=== PATIENT | male | born 1960 | race Caucasian/White ===

== ENCOUNTER 2017-06-18 14:10 | Outpatient (CLI) | payer OTHER ==
[~2017-06-18 14:10] MED LIST: NO HOME MEDS
[2017-06-18 14:39] LABS: BASOPHILS % (AUTO) 0.4 % (0-1); EOSINOPHILS # (AUTO) 0.2 X10'3 (0-0.9); HEMATOCRIT 45.5 % (42.0-52.0); HEMOGLOBIN 15.3 g/dl (14.0-17.9); LYMPHOCYTES # (AUTO) 1.1 X10'3 (1.1-4.8); LYMPHOCYTES % (AUTO) 19.8 % (21-51); MEAN CORPUSCULAR HEMOGLOBIN 30.4 PG (27.0-31.0); MEAN CORPUSCULAR HGB CONC 33.7 % (33.0-36.5); MEAN CORPUSCULAR VOLUME 90.3 FL (78-98); MEAN PLATELET VOLUME 7.7 FL (7.4-10.4); MONOCYTES # (AUTO) 0.4 X10'3 (0-0.9); MONOCYTES % (AUTO) 7.7 % (2-12); NEUTROPHILS # (AUTO) 3.9 X10'3 (1.8-7.7); NEUTROPHILS % (AUTO) 68.1 % (42-75); PLATELET COUNT 238 X10'3 (140-440); RED BLOOD COUNT 5.03 X10'6 (4.70-6.10); RED CELL DISTRIBUTION WIDTH 13.3 % (11.5-14.5); WHITE BLOOD COUNT 5.7 X10'3 (4.5-11.0)
[2017-06-18 15:06] LABS: ALANINE AMINOTRANSFERASE 24 U/L (12-78); ALBUMIN/GLOBULIN RATIO 1.1 (1.1-1.5); ALKALINE PHOSPHATASE 88 IU/L (46-116); ANION GAP 5 (8-16); ASPARTATE AMINO TRANSFERASE 14 U/L (10-37); BILIRUBIN,TOTAL 0.7 MG/DL (0.1-1.0); BLOOD UREA NITROGEN 11 MG/DL (7-18); CALCIUM 9.1 MG/DL (8.5-10.1); CHLORIDE 105 MMOL/L (99-107); CHOLESTEROL 189 MG/DL (0-200); GLUCOSE 101 MG/DL (70-104); HDL CHOLESTEROL 62 MG/DL (35-60); LDL CHOLESTEROL 113 MG/DL (50-100); POTASSIUM 4.3 MMOL/L (3.5-5.1); SODIUM 141 MMOL/L (135-145); TOTAL CARBON DIOXIDE 30.9 MMOL/L (24-32); TOTAL PROTEIN 7.5 G/DL (6.4-8.2); TRIGLYCERIDES 65 MG/DL (20-135); eGFR 78 ML/MIN
== END 2017-06-18 23:59 | disposition home or self-care (01) ==
LOC: LAB 14:10
PROVIDERS: ATTEND Internal Medicine
DX: Z00.00 Encounter for general adult medical examination without abnormal findings (principal)
CPT/HCPCS: 36415; 80053; 80061; 82306; 84153; 84443; 85025

== ENCOUNTER 2019-04-14 09:25 | Day surgery (SDC) | payer OTHER ==
[~2019-04-14] VITALS: Ht 188 cm; Wt 86.4 kg
[2019-04-14 09:32] VITALS: BP 152/90
[2019-04-14] MEDS ORDERED: MIDAZolam 5mg/5ml vial ONE ×2 (09:33)
[2019-04-14] MEDS ORDERED: fentaNYL/PF 50MCG/1 ML 2ML syringe ONE (09:33)
[2019-04-14 10:49] VITALS: BP 115/60
[2019-04-14 10:59] VITALS: BP 111/61
[2019-04-14 11:09] VITALS: BP 108/62
[2019-04-14 11:19] VITALS: BP 112/65
== END 2019-04-14 11:30 | disposition home or self-care (01) ==
LOC: GI LAB 09:25
PROVIDERS: ATTEND Internal Medicine Gastroenterology
DX: Z12.11 Encounter for screening for malignant neoplasm of colon (principal); K63.5 Polyp of colon
CPT/HCPCS: 45380; 99152; 99153; J2250; J3010; J7040; A4620

== ENCOUNTER 2019-06-09 14:41 | Emergency (ER) | payer OTHER ==
[~2019-06-09] VITALS: Ht 188 cm; Wt 87.7 kg
[~2019-06-09 14:41] MED LIST changes: +CYCL-1 PO
[2019-06-09] MEDS ORDERED: fentaNYL/PF 50MCG/1 ML 2ML syringe IV ONE ×2 (15:55→17:40)
[2019-06-09] MEDS ORDERED: ketorolac trometh. 30mg/ml inj. IV ONE (15:55)
[2019-06-09] MEDS ORDERED: ketamine 50 mg/ml 10ml vial IV ONE ×2 (16:05→18:30)
--- NOTE | 2019-06-09 17:09 | NUR ---
WAITING ORTHOTEC FOR PROCEDURE. DR. BARROSO IN TO SEE PT. VSS. PAIN MEDS EFFECTIVE. CONSENTS SIGNED FOR REDUCTION LEFT SHOULDER.
--- NOTE | 2019-06-09 18:23 | NUR ---
POST REDUCTION FILM DONE NOW.
--- NOTE | 2019-06-09 18:27 | NUR ---
PT ABLE TO ANSWER QUESTIONS. STATES NO PAIN AT ALL. VS BACK TO PRE-PROCEDURE.
--- NOTE | 2019-06-09 18:32 | NUR ---
V.O. KETAMINE 100MG INTRA-PROCEDURE ORDERED AND DONE.
--- NOTE | 2019-06-09 18:35 | NUR ---
PT BACK TO BASELINE AFTER MODERATE SEDATION. REPORT BACK TO PRIMARY NURSE IKE. AT BEDSIDE.
--- NOTE | 2019-06-09 18:44 | NUR ---
ASSUMING CARE FROM PREVIOUS RN WHO IS GOING OFF SHIFT. PT IS POST MODERATE SEDATION. ALERT, AWAKE AND CONVERSING WITH AT BEDSIDE. VITALS WNL. WILL CONTINUE TO MONITOR.
[2019-06-09] MEDS ORDERED: CYCL-1 PO (18:58)
[2019-06-09] MEDS ORDERED: HYDR-4383 PO (18:58)
[2019-06-09 19:13] VITALS: BP 154/81
[2019-06-09] MEDS ORDERED: cyclobenzaprine 10mg tablet PO ONE (19:15)
--- NOTE | 2019-06-09 19:21 | NUR ---
PT AND UNDERSTAND D\C PLAN AND INSTRUCTIONS. PT ASSISTED INTO WHEELCHAIR AND OUT TO VEHICLE. TRANSPORTING HOME. NO QUESTIONS AT TIME OF D\C. PT HAS SLING\SPLINT IN PLACE.
== END 2019-06-09 19:22 | disposition home or self-care (01) ==
LOC: ER 14:42
DX: S43.085A Other dislocation of left shoulder joint, initial encounter (principal); Z79.899 Other long term (current) drug therapy; V00.311A Fall from snowboard, initial encounter; Y93.29 Activity, other involving ice and snow; Y92.89 Other specified places as the place of occurrence of the external cause; Y99.8 Other external cause status
CPT/HCPCS: 23650; 73020; 73030; 96374; 96375; 96376; 99152; 99285; J1885; J3010

== ENCOUNTER 2019-07-28 11:01 | Outpatient (CLI) | payer OTHER ==
[~2019-07-28 11:01] MED LIST changes: +HYDR-4383 PO
== END 2019-07-28 23:59 | disposition home or self-care (01) ==
LOC: RAD 11:01
PROVIDERS: ATTEND Orthopaedic Surgery
DX: Z09 Encounter for follow-up examination after completed treatment for conditions other than malignant neoplasm (principal); S42.92XD Fracture of left shoulder girdle, part unspecified, subsequent encounter for fracture with routine healing; X58.XXXD Exposure to other specified factors, subsequent encounter
CPT/HCPCS: 73030

== ENCOUNTER 2020-03-28 10:58 | Outpatient (CLI) | payer BC ==
[2020-03-28 11:36] LABS: BASOPHILS % (AUTO) 0.6 % (0-1); EOSINOPHILS # (AUTO) 0.2 X10'3 (0-0.9); EOSINOPHILS % (AUTO) 5.9 % (0-6); HEMATOCRIT 44.2 % (42.0-52.0); HEMOGLOBIN 14.7 g/dl (14.0-17.9); LYMPHOCYTES # (AUTO) 0.9 X10'3 (1.1-4.8); LYMPHOCYTES % (AUTO) 20.9 % (21-51); MEAN CORPUSCULAR HEMOGLOBIN 30.9 PG (27.0-31.0); MEAN CORPUSCULAR HGB CONC 33.2 g/dL (33.0-36.5); MEAN PLATELET VOLUME 7.3 FL (7.4-10.4); MONOCYTES # (AUTO) 0.4 X10'3 (0-0.9); MONOCYTES % (AUTO) 9.2 % (2-12); NEUTROPHILS # (AUTO) 2.7 X10'3 (1.8-7.7); NEUTROPHILS % (AUTO) 63.4 % (42-75); PLATELET COUNT 246 X10'3 (140-440); RED BLOOD COUNT 4.76 X10'6 (4.70-6.10); RED CELL DISTRIBUTION WIDTH 13.4 % (11.5-14.5); WHITE BLOOD COUNT 4.2 X10'3 (4.5-11.0)
[2020-03-28 12:00] LABS: ALANINE AMINOTRANSFERASE 23 U/L (12-78); ALBUMIN 3.8 G/DL (3.4-5.0); ALKALINE PHOSPHATASE 103 IU/L (46-116); ANION GAP 9 (8-16); ASPARTATE AMINO TRANSFERASE 14 U/L (10-37); BILIRUBIN,TOTAL 0.5 MG/DL (0.1-1.0); BLOOD UREA NITROGEN 10 MG/DL (7-18); BUN/CREATININE RATIO 9.1 (5.4-32.0); CALCIUM 9.3 MG/DL (8.5-10.1); CHLORIDE 103 MMOL/L (99-107); CHOL/HDL RATIO 3.9 (0.00-4.99); CHOLESTEROL 227 MG/DL (0-200); GLUCOSE 103 MG/DL (70-104); HDL CHOLESTEROL 58 MG/DL (35-60); LDL CHOLESTEROL 133 MG/DL (50-100); POTASSIUM 3.9 MMOL/L (3.5-5.1); SODIUM 142 MMOL/L (135-145); TOTAL CARBON DIOXIDE 30.1 MMOL/L (24-32); TOTAL PROTEIN 7.5 G/DL (6.4-8.2); TRIGLYCERIDES 161 MG/DL (20-135); eGFR 69 ML/MIN
[2020-03-29 08:53] LABS: % FREE PSA 22.9 % (.); PSA, FREE 0.48 ng/mL
== END 2020-03-28 23:59 | disposition home or self-care (01) ==
LOC: LAB 10:58
PROVIDERS: ATTEND Internal Medicine
DX: Z00.00 Encounter for general adult medical examination without abnormal findings (principal)
CPT/HCPCS: 36415; 80053; 80061; 82306; 84153; 84154; 84443; 85025

== ENCOUNTER 2020-08-15 09:16 | Day surgery (SDC) | payer BC ==
[~2020-08-15] VITALS: Ht 188 cm; Wt 91.4 kg
[2020-08-15 09:23] VITALS: BP 167/75
[2020-08-15] MEDS ORDERED: MULT-227 PO (09:35)
[2020-08-15] MEDS ORDERED: MIDAZolam 1 MG/ML 5ML VIAL ONE (09:36)
[2020-08-15] MEDS ORDERED: LIDOcaine Viscous 15ml cup ONE (09:36)
[2020-08-15] MEDS ORDERED: fentaNYL/PF 50MCG/1 ML 2ML syringe ONE (09:36)
[2020-08-15 09:55] VITALS: BP 123/78
[2020-08-15 10:05] VITALS: BP 125/51
[2020-08-15 10:15] VITALS: BP 135/78
[2020-08-15 10:25] VITALS: BP 131/78
== END 2020-08-15 10:35 | disposition home or self-care (01) ==
LOC: GI LAB 09:16
PROVIDERS: ATTEND Internal Medicine Gastroenterology
DX: R13.19 Other dysphagia (principal); K22.2 Esophageal obstruction; K44.9 Diaphragmatic hernia without obstruction or gangrene; K22.8 Other specified diseases of esophagus; K29.50 Unspecified chronic gastritis without bleeding; K22.70 Barrett's esophagus without dysplasia; K20.80 Other esophagitis without bleeding; Z72.89 Other problems related to lifestyle
CPT/HCPCS: 43239; 43450; J2250; J3010; J7040; 99152; A4620

== ENCOUNTER 2021-04-01 09:15 | Outpatient (CLI) | payer BC ==
[~2021-04-01 09:15] MED LIST changes: -CYCL-1 PO; -HYDR-4383 PO; +MULT-227 PO; -NO HOME MEDS
== END 2021-04-01 23:59 | disposition home or self-care (01) ==
LOC: 64 CT 09:15
PROVIDERS: ATTEND Internal Medicine
DX: K40.90 Unilateral inguinal hernia, without obstruction or gangrene, not specified as recurrent (principal); K57.30 Diverticulosis of large intestine without perforation or abscess without bleeding; N40.0 Benign prostatic hyperplasia without lower urinary tract symptoms; M47.819 Spondylosis without myelopathy or radiculopathy, site unspecified; M19.09 Primary osteoarthritis, other specified site; I70.8 Atherosclerosis of other arteries
CPT/HCPCS: 72192

== ENCOUNTER 2022-09-26 10:20 | Outpatient (CLI) | payer BC ==
[2022-09-26 11:05] LABS: CLARITY,URINE CLOUDY (Clear); COLOR,URINE YELLOW (Yellow); GLUCOSE, URINE NEGATIVE (Neg); KETONES,URINE NEGATIVE (Neg); LEUKOCYTE ESTERASE ,URINE NEGATIVE (Neg); NITRITES, URINE NEGATIVE (Neg); OCCULT BLOOD,URINE NEGATIVE (Neg); PROTEIN,URINE NEGATIVE (Neg)
[2022-09-26 11:08] LABS: BASOPHILS # (AUTO) 0.1 X10'3 (0-0.2); BASOPHILS % (AUTO) 1.3 % (0-1); EOSINOPHILS # (AUTO) 0.1 X10'3 (0-0.9); EOSINOPHILS % (AUTO) 1.2 % (0-6); HEMOGLOBIN 15.4 g/dl (14.0-17.9); LYMPHOCYTES # (AUTO) 1.2 X10'3 (1.1-4.8); LYMPHOCYTES % (AUTO) 23.3 % (21-51); MEAN CORPUSCULAR HEMOGLOBIN 31.8 PG (27.0-31.0); MEAN CORPUSCULAR HGB CONC 33.4 g/dL (33.0-36.5); MEAN CORPUSCULAR VOLUME 95.3 FL (78-98); MEAN PLATELET VOLUME 7.4 FL (7.4-10.4); MONOCYTES # (AUTO) 0.5 X10'3 (0-0.9); MONOCYTES % (AUTO) 9.7 % (2-12); NEUTROPHILS # (AUTO) 3.4 X10'3 (1.8-7.7); NEUTROPHILS % (AUTO) 64.5 % (42-75); PLATELET COUNT 330 X10'3 (140-440); RED BLOOD COUNT 4.83 X10'6 (4.70-6.10); RED CELL DISTRIBUTION WIDTH 13.5 % (11.5-14.5); WHITE BLOOD COUNT 5.2 X10'3 (4.5-11.0)
[2022-09-26 11:11] LABS: UA COLLECTION TYPE CLN CATCH MIDSTREAM
[2022-09-26 11:12] LABS: MUCUS STRANDS MANY /LPF (Neg)
[2022-09-26 11:13] LABS: SQUAMOUS EPITHELIAL CELL,UR FEW /LPF (FEW)
[2022-09-26 11:14] LABS: BACTERIA,URINE 1+ /HPF (Neg); RBC,URINE 0-2 /HPF (0-2)
[2022-09-26 11:19] LABS: ALANINE AMINOTRANSFERASE 31 U/L (12-78); ALBUMIN 3.8 G/DL (3.4-5.0); ALKALINE PHOSPHATASE 120 IU/L (46-116); ANION GAP 6 (8-16); ASPARTATE AMINO TRANSFERASE 22 U/L (10-37); BILIRUBIN,TOTAL 0.7 MG/DL (0.1-1.0); BLOOD UREA NITROGEN 12 MG/DL (7-18); BUN/CREATININE RATIO 10.8 (10.0-20.0); CALCIUM 9.4 MG/DL (8.5-10.1); CHLORIDE 103 MMOL/L (99-107); CREATININE 1.11 MG/DL (0.60-1.10); GLUCOSE 101 MG/DL (70-104); SODIUM 140 MMOL/L (135-145); TOTAL CARBON DIOXIDE 31.3 MMOL/L (24-32); TOTAL PROTEIN 7.6 G/DL (6.4-8.2); eGFR 68 ML/MIN
[2022-09-26 11:28] LABS: CHOL/HDL RATIO 3.5 (0.00-4.99); CHOLESTEROL 203 MG/DL (0-200); HDL CHOLESTEROL 58 MG/DL (35-60); LDL CHOLESTEROL 112 MG/DL (50-100); TRIGLYCERIDES 127 MG/DL (20-135)
[2022-09-27 14:10] LABS: % FREE PSA 18.7 % (.); PSA, FREE 0.43 ng/mL
== END 2022-09-26 23:59 | disposition home or self-care (01) ==
LOC: LAB 10:20
PROVIDERS: ATTEND Nurse Practitioner Family
DX: Z00.01 Encounter for general adult medical examination with abnormal findings (principal); Z76.89 Persons encountering health services in other specified circumstances
CPT/HCPCS: 36415; 80053; 80061; 81001; 84153; 84154; 84439; 84443; 85025

== ENCOUNTER 2022-10-29 06:55 | Day surgery (SDC) | payer BC ==
[2022-10-24 10:02] LABS: BASOPHILS % (AUTO) 0.7 % (0-1); EOSINOPHILS # (AUTO) 0.1 X10'3 (0-0.9); EOSINOPHILS % (AUTO) 2.4 % (0-6); LYMPHOCYTES # (AUTO) 1.2 X10'3 (1.1-4.8); MEAN CORPUSCULAR HEMOGLOBIN 32.6 PG (27.0-31.0); MEAN CORPUSCULAR HGB CONC 33.8 g/dL (33.0-36.5); MEAN CORPUSCULAR VOLUME 96.4 FL (78-98); MEAN PLATELET VOLUME 6.9 FL (7.4-10.4); MONOCYTES # (AUTO) 0.5 X10'3 (0-0.9); MONOCYTES % (AUTO) 10.5 % (2-12); NEUTROPHILS # (AUTO) 3.3 X10'3 (1.8-7.7); NEUTROPHILS % (AUTO) 63.4 % (42-75); PRE OP HEMATOCRIT 43.4 % (42.0-52.0); PRE OP HEMOGLOBIN 14.7 g/dL (14.0-17.9); PRE OP PLATELET COUNT 235 X10'3 (140-440); RED CELL DISTRIBUTION WIDTH 13.9 % (11.5-14.5)
[2022-10-24 10:09] LABS: ALBUMIN 3.7 G/DL (3.4-5.0); ALBUMIN/GLOBULIN RATIO 1.1 (1.1-1.5); ALKALINE PHOSPHATASE 138 IU/L (46-116); BLOOD UREA NITROGEN 12 MG/DL (7-18); BUN/CREATININE RATIO 9.8 (10.0-20.0); CHLORIDE 104 MMOL/L (99-107); CREATININE 1.23 MG/DL (0.60-1.10); PRE OP ALT 32 U/L (30-65); PRE OP ANION GAP 1 (8-16); PRE OP AST 23 U/L (10-37); PRE OP BILIRUB, TOTAL 0.4 MG/DL (0.0-1.0); PRE OP GLUCOSE 112 MG/DL (70-104); PRE OP POTASSIUM 4.2 MMOL/L (3.4-5.1); PRE OP SODIUM 138 MMOL/L (135-145); TOTAL CARBON DIOXIDE 32.9 MMOL/L (24-32); eGFR 60 ML/MIN
[~2022-10-29] VITALS: Ht 188 cm; Wt 94.5 kg
[2022-10-29] VITALS (14 sets, daily range): BP systolic 144–182; BP diastolic 80–95
[~2022-10-29 06:55] MED LIST changes: +PANT40TA54 PO; +cefazolin 2gm/D5W 100mL 100 ML IV ONE; +famotidine 20mg tablet PO ONE; +ringers solution, lacted 1,000 ML IV SCH
[2022-10-29] MEDS ORDERED: fentaNYL/PF 50MCG/1 ML 2ML syringe IV PRN (08:50)
[2022-10-29] MEDS ORDERED: morphine 4 MG/ML inj SYRINge IV PRN (08:50)
[2022-10-29] MEDS ORDERED: morphine 2 MG/ML inj. syringe IV PRN (08:50)
[2022-10-29] MEDS ORDERED: ondansetron/PF 4mg/2ml inj IV PRN (08:50)
[2022-10-29] MEDS ORDERED: ringers solution, lacted 1,000 ML IV SCH (08:50)
[2022-10-29] MEDS ORDERED: hydrALAZINE 20mg/ml inj. IV PRN (08:50)
[2022-10-29] MEDS ORDERED: labetalol 20mg/4ml (5mg/ml) syringe IV PRN (08:50)
[2022-10-29] MEDS ORDERED: fentaNYL/PF 50MCG/1 ML 2ML syringe ONE ×2 (09:34→11:47)
[2022-10-29] MEDS ORDERED: midazolam 1 mg/ML 2ml injection ONE (09:34)
[2022-10-29] MEDS ORDERED: propofol inj 20 ML IV ONE (09:35)
[2022-10-29] MEDS ORDERED: LIDOcaine 2% (20mg/ml) 5ml vial ONE (09:35)
[2022-10-29] MEDS ORDERED: rocuronium 10mg/ml inj IV ONE ×2 (09:35→10:24)
[2022-10-29] MEDS ORDERED: ondansetron/PF 4mg/2ml inj ONE (09:35)
[2022-10-29] MEDS ORDERED: glycopyrrolate 0.2mg/ml inj ONE (09:36)
[2022-10-29] MEDS ORDERED: neostigmine methylsulfate 1 MG/ML 10ml vial ONE (09:36)
[2022-10-29] MEDS ORDERED: acetaminophen 1,000mg/100ml IV 100 ML IV ONE (09:49)
[2022-10-29] MEDS ORDERED: hydrALAZINE 20mg/ml inj. IV ONE (10:17)
[2022-10-29] MEDS ORDERED: BUPIVAcaine/PF 2.5 mg/ml (0.25%) 30ml vial IJ ONE (10:22)
--- NOTE | 2022-10-29 12:18 | NUR ---
Received from OR via [facility] TO RR 6, accompanied by Anesthesiologist DR LUX and report given by Anesthesiolgist. PT PRESENTS WITH PIV 20G RIGHT HAND, 3 ABD LAP SITES WITH DERMABOND CDI, SPO2 100% 6L MASK, LR RUNNING AT 100MLS/HR, VSS. Addendum: 10/29/22 at 1233 by Martha Bermudez RN, RN Amended: Links added.
[2022-10-29] MEDS: fentaNYL/PF 50MCG/1 ML 2ML syringe IV PRN ×2 (12:49→13:06)
[2022-10-29] MEDS ORDERED: HYDROcodone/acetaminophen 10/325mg tab PO ONE (12:50)
--- NOTE | 2022-10-29 16:48 | NUR ---
PATIENT MEETS DISCHARGE CRITERIA. GAVE INSTRUCTIONS AND WHEELED PATIENT TO HIS WIFES CAR Addendum: 10/29/22 at 1704 by Beth Langley RN Amended: Links added.
== END 2022-10-29 16:48 | disposition home or self-care (01) ==
LOC: PAS 06:55
PROVIDERS: ATTEND Surgery
DX: K40.20 Bilateral inguinal hernia, without obstruction or gangrene, not specified as recurrent (principal); K21.9 Gastro-esophageal reflux disease without esophagitis; Z98.52 Vasectomy status; Z72.89 Other problems related to lifestyle; Z98.890 Other specified postprocedural states; Z79.899 Other long term (current) drug therapy; Z85.828 Personal history of other malignant neoplasm of skin
CPT/HCPCS: 36415; 49650; 80053; 82948; 85025; 93005; C1781; J0131; J0360; J0690; J2250; J2270; J2405; J2704; J2710; J3010; J3490; J7030; J7120; S2900; Z7506; Z7508; Z7512; A4215; A4618; C1758

== ENCOUNTER → 2023-11-06 | Outpatient (CLI) | payer BC ==
[~2023-11-06] MED LIST changes: -cefazolin 2gm/D5W 100mL 100 ML IV ONE; -famotidine 20mg tablet PO ONE; -ringers solution, lacted 1,000 ML IV SCH
[2023-11-06 13:17] LABS: BASOPHILS % (AUTO) 0.8 % (0-1); EOSINOPHILS # (AUTO) 0.2 X10'3 (0-0.9); EOSINOPHILS % (AUTO) 3.9 % (0-6); HEMATOCRIT 45.6 % (42.0-52.0); HEMOGLOBIN 15.1 g/dl (14.0-17.9); LYMPHOCYTES # (AUTO) 1.3 X10'3 (1.1-4.8); LYMPHOCYTES % (AUTO) 26.5 % (21-51); MEAN CORPUSCULAR HEMOGLOBIN 31.8 PG (27.0-31.0); MEAN CORPUSCULAR HGB CONC 33.1 g/dL (33.0-36.5); MEAN CORPUSCULAR VOLUME 95.9 FL (78-98); MEAN PLATELET VOLUME 7.3 FL (7.4-10.4); MONOCYTES # (AUTO) 0.6 X10'3 (0-0.9); NEUTROPHILS # (AUTO) 2.9 X10'3 (1.8-7.7); NEUTROPHILS % (AUTO) 57.8 % (42-75); PLATELET COUNT 253 X10'3 (140-440); RED BLOOD COUNT 4.75 X10'6 (4.70-6.10); RED CELL DISTRIBUTION WIDTH 13.2 % (11.5-14.5)
[2023-11-06 13:25] LABS: BILIRUBIN,URINE NEGATIVE (Neg); CLARITY,URINE CLEAR (Clear); COLOR,URINE YELLOW (Yellow); GLUCOSE, URINE NEGATIVE (Neg); KETONES,URINE NEGATIVE (Neg); LEUKOCYTE ESTERASE ,URINE TRACE (Neg); NITRITES, URINE NEGATIVE (Neg); OCCULT BLOOD,URINE NEGATIVE (Neg); PH,URINE 7.5 (4.8-8.0); PROTEIN,URINE TRACE mg/dl (Neg)
[2023-11-06 13:26] LABS: UA COLLECTION TYPE VOIDED
[2023-11-06 13:29] LABS: ALANINE AMINOTRANSFERASE 35 U/L (12-78); ALBUMIN 3.7 G/DL (3.4-5.0); ALKALINE PHOSPHATASE 122 IU/L (46-116); ANION GAP 8 (8-16); ASPARTATE AMINO TRANSFERASE 15 U/L (10-37); BILIRUBIN,TOTAL 0.8 MG/DL (0.1-1.0); BLOOD UREA NITROGEN 11 MG/DL (7-18); BUN/CREATININE RATIO 9.4 (10.0-20.0); CALCIUM 8.6 MG/DL (8.5-10.1); CHLORIDE 104 MMOL/L (99-107); CREATININE 1.17 MG/DL (0.60-1.10); GLUCOSE 99 MG/DL (70-104); SODIUM 142 MMOL/L (135-145); TOTAL PROTEIN 7.5 G/DL (6.4-8.2); eGFR 63 ML/MIN
[2023-11-06 13:40] LABS: CHOL/HDL RATIO 3.6 (0.00-4.99); CHOLESTEROL 238 MG/DL (0-200); FREE T4 (FREE THYROXINE) 0.85 NG/DL (0.73-1.40); HDL CHOLESTEROL 67 MG/DL (35-60); LDL CHOLESTEROL 132 MG/DL (50-100); THYROID STIMULATING HORMONE 2.99 ulU/ml (0.34-4.50); TRIGLYCERIDES 105 MG/DL (20-135)
[2023-11-06 13:43] LABS: BACTERIA,URINE FEW /HPF (Neg)
[2023-11-06 13:44] LABS: MUCUS STRANDS MANY /LPF (Neg); SQUAMOUS EPITHELIAL CELL,UR NONE SEEN /LPF (FEW); TRANSITIONAL EPI CELLS,URINE FEW /HPF
[2023-11-06 13:47] LABS: RBC,URINE 0-2 /HPF (0-2)
[2023-11-10 11:46] LABS: % FREE PSA 18.5 % (.); PSA, FREE 0.37 ng/mL
== END | disposition home or self-care (01) ==
LOC: LAB 12:29
PROVIDERS: ATTEND Nurse Practitioner Family
DX: Z00.01 Encounter for general adult medical examination with abnormal findings (principal); Z13.220 Encounter for screening for lipoid disorders; Z12.5 Encounter for screening for malignant neoplasm of prostate; Z13.29 Encounter for screening for other suspected endocrine disorder
CPT/HCPCS: 36415; 80053; 80061; 81001; 84153; 84154; 84439; 84443; 85025

== ENCOUNTER 2025-01-02 14:34 | Outpatient (CLI) | payer BC ==
--- NOTE | 2025-01-03 04:12 | RADIOLOGY REPORT ---
CLINICAL INDICATION: LEFT KNEE PAIN TECHNIQUE: DI KNEE, COMP 4 VW MIN Comparison: None FINDINGS/IMPRESSION: : There is no evidence of acute fracture or dislocation. Moderate medial and [id number] lateral tibiofemoral and moderate patellofemoral compartment olga rowing with associated osteophytosis. Trace chondrocalcinosis. Soft tissues are unremarkable.
== END 2025-01-02 23:59 | disposition home or self-care (01) ==
LOC: RAD 14:34
PROVIDERS: ATTEND Nurse Practitioner Family
DX: M25.762 Osteophyte, left knee (principal); M25.862 Other specified joint disorders, left knee; M25.562 Pain in left knee
CPT/HCPCS: 73564

== ENCOUNTER 2025-01-06 12:32 | Outpatient (CLI) | payer BC ==
[2025-01-06 13:03] LABS: MEAN PLATELET VOLUME 7.3 FL (7.4-10.4); RED CELL DISTRIBUTION WIDTH 13.6 % (11.5-14.5)
[2025-01-06 13:25] LABS: CHOL/HDL RATIO 2.8 (0.00-4.99); CREATININE 1.13 MG/DL (0.60-1.10); LDL CHOLESTEROL 109 MG/DL (50-100); TOTAL CARBON DIOXIDE 30.6 MMOL/L (24-32); eGFR 66 ML/MIN
[2025-01-08 07:09] LABS: PSA, ULTRASENSITIVE W/O SERIAL 1.910 ng/mL (0.000-4.000); TESTOSTERONE, SERUM 410 ng/dL (264-916)
== END 2025-01-06 23:59 | disposition home or self-care (01) ==
LOC: RAD 12:32
PROVIDERS: ATTEND Nurse Practitioner Family
DX: N40.1 Benign prostatic hyperplasia with lower urinary tract symptoms (principal); E78.5 Hyperlipidemia, unspecified; K21.9 Gastro-esophageal reflux disease without esophagitis; N13.8 Other obstructive and reflux uropathy; R35.1 Nocturia; R53.83 Other fatigue; Z12.11 Encounter for screening for malignant neoplasm of colon; Z00.01 Encounter for general adult medical examination with abnormal findings
CPT/HCPCS: 36415; 80053; 80061; 84153; 84402; 84403; 84439; 84443; 85025

== ENCOUNTER 2025-03-31 10:37 | Outpatient (CLI) | payer BC ==
--- NOTE | 2025-03-31 13:21 | RADIOLOGY REPORT ---
CLINICAL INDICATION: PAIN IN LEFT KNEE TECHNIQUE: Multiplanar, multisequence MRI of the left knee was performed without contrast. Contrast: None. COMPARISON: DI KNEE, COMP 4 VW MIN on DOS: 01/02/25. FINDINGS: Joint space and synovium: There is moderate knee joint effusion. No synovitis. There is 1.1 x 1.0 cm cystic structure in between the proximal tibia and fibula, likely reflecting a ganglion cyst. Bones and articular cartilage: There is no evidence of acute fracture. There is bone marrow edema in the posterior medial tibia. The alignment is normal. Articular cartilage is preserved in the patellofemoral compartment. There is chondral thinning in the posterior aspect of the medial femoral condyle. The articular cartilage in the rest of the medial compartment is intact. Lateral compartment articular cartilage is also maintained. Menisci: There is a complex tear of the posterior horn to body of the medial meniscus including horizontal and radial components. Lateral meniscus is intact. Tendons and ligaments: The tendons in the posterior knee are intact. The extensor mechanism is intact. The anterior cruciate ligament is intact. The posterior cruciate ligament is intact. The medial collateral ligament and the lateral collateral ligament stabilizing complex are intact. Muscles: Regional muscles are preserved in bulk and signal characteristics. Other: None. IMPRESSION: 1. Complex tear in the posterior horn to body of the medial meniscus of the left knee. 2. Bone marrow edema in the posterior medial tibia related to the meniscus tear and/or chondral thinning. 3. Moderate knee joint effusion. 4. 1.1 cm cystic structure in between the proximal tibia and fibula, likely reflecting a ganglion cyst.
== END 2025-03-31 23:59 | disposition home or self-care (01) ==
LOC: MRI 10:37
PROVIDERS: ATTEND Internal Medicine
DX: S83.242A Other tear of medial meniscus, current injury, left knee, initial encounter (principal); M25.462 Effusion, left knee; M25.862 Other specified joint disorders, left knee; R60.0 Localized edema; M25.562 Pain in left knee
CPT/HCPCS: 73721